=== PATIENT | female | born 1960 | race Caucasian/White ===

== ENCOUNTER 2022-02-01 06:42 | Day surgery (SDC) | payer OTHER ==
[~2022-02-01] VITALS: Ht 160 cm; Wt 79.5 kg
[2022-02-01] MEDS ORDERED: TRAZ50 (07:07)
[2022-02-01] MEDS ORDERED: ATOR40TA (07:07)
== END 2022-02-01 08:55 | disposition home or self-care (01) ==
LOC: ORSCSDS 06:42
PROVIDERS: Surgery
PROC: 0DJD8ZZ Inspection of Lower Intestinal Tract, Via Natural or Artificial Opening Endoscopic (ICD-10-PCS; principal; 2022-02-01 08:00)
DX: Z12.11 Encounter for screening for malignant neoplasm of colon (principal); I10 Essential (primary) hypertension; Z79.899 Other long term (current) drug therapy
CPT/HCPCS: J2704; J7120

== ENCOUNTER → 2023-01-11 | Outpatient (CLI) | payer SELFPAY ==
[~2023-01-11] MED LIST: ATOR40TA; TRAZ50
== END | disposition home or self-care (01) ==
LOC: LAB SHORT 10:45 → LAB 10:45
DX: Z13.21 Encounter for screening for nutritional disorder (principal); Z13.228 Encounter for screening for other metabolic disorders; N95.1 Menopausal and female climacteric states; R53.83 Other fatigue; R63.5 Abnormal weight gain; R37 Sexual dysfunction, unspecified
CPT/HCPCS: 85651